=== PATIENT | male | born 1950 | race Caucasian/White ===

== ENCOUNTER → 2018-12-28 06:53 | Outpatient (CLI) | payer MEDICARE, SELFPAY ==
--- NOTE | 2018-12-28 06:58 | DI.US.S_ITS ---
PROCEDURE: US ABDOMEN LIMITED INDICATIONS: LEFT INGUINAL PRESSURE TECHNIQUE: Real-time focused scanning was performed of the left inguinal region, with image documentation. COMPARISON: None. FINDINGS: No abnormal bulge with Valsalva maneuver in the left inguinal region to suggest hernia. No fluid collection or mass. IMPRESSION: Negative exam. No left inguinal hernia. Dictated by: Darío Benson M.D. on 12/28/2018 at 7:55 Approved by: Darío Benson M.D. on 12/28/2018 at 7:56
== END ==
PROVIDERS: PCP Emergency Medicine Emergency Medical Services; Visit Provider Physician Assistant
DX: K40.90 Unilateral inguinal hernia, without obstruction or gangrene, not specified as recurrent (principal)
CPT/HCPCS: 76705

== ENCOUNTER → 2022-11-18 12:39 | Outpatient (CLI) | payer MEDICARE, SELFPAY ==
--- NOTE | 2022-11-18 | DI.ECHO.S_ITS ---
[facility] +---------+ : : [address] : [place] : : : : [id number] : : : : Phone: [phone]+ Echocardiogram Report + + :Name: WILL HUTCHINSON Study Date: 11/18/2022 Height: 69 in : :[facility] ReadingLocation: Weight: 195 lb : : Gender: Male BSA: 2.0 m2 : :: 1950 Age: 72 yrs BP: 115/62 mmHg: :Reason For Study: Cardiomyopathy : :Ordering Physician: EVENS, : :SUDHA Performed By: Vonnie Tucker : :Referring: SUDHA HORNER : + + Interpretation Summary Normal sinus rhythm with heart rate 52-60 bpm. Normal LV size and wall thickness. Normal wall motion and LV systolic function. Ejection fraction is 60-65%. Normal chamber sizes. There is a pacing lead crossing the tricuspid valve with trace associated tricuspid regurgitation. Aortic sclerosis without stenosis. Otherwise no significant valvular abnormalities. Mildly dilated aortic root measuring 4.4 cm in diameter. Mildly dilated ascending aorta measuring 4 cm in diameter Compared to prior study obtained November 03, 2021, LV is more dynamic. Aortic root is smaller down from 4.8 cm to 4.4 cm. LV end- diastolic dimension is down from 6.5 cm to 5.6 cm on current study. Procedure: A two-dimensional transthoracic echocardiogram with color flow and Doppler was performed. The study quality was technically adequate. Comparison is made with the echocardiogram of 12/21/2013. The patient has a paced rhythm. Left Ventricle: The left ventricle is normal in size. The ejection fraction is estimated to be 60-65%. Diastolic function could not be accurately assessed due to paced rhythm. Right Ventricle: The right ventricle is mildly dilated. There is a pacemaker lead in the right ventricle. The right ventricular systolic function is normal. Atria: The left atrial size is normal. Right atrial size is normal. There is no Doppler evidence for an interatrial shunt. Mitral Valve: The mitral valve leaflets appear mildly thickened, but open well. There is mild mitral valve prolapse. There is no mitral valve stenosis. There is mild mitral regurgitation. Aortic Valve: The aortic valve is trileaflet. The aortic valve opens well. There is no aortic valve stenosis. There is mild aortic regurgitation. Tricuspid Valve: The tricuspid valve is not well visualized. There is no tricuspid stenosis. There is trace tricuspid regurgitation. Pulmonic Valve: The pulmonic valve is not well visualized. There is no pulmonic valvular stenosis. There is trace pulmonic regurgitation. Great Vessels: The aortic root is mildly dilated. The ascending aorta is mildly enlarged. The pulmonary artery is normal size. The inferior vena cava was not well visualized. Pericardium/ Pleura There is no pericardial effusion. There is a small left- sided pleural effusion. MMode/2D Measurements & Calculations LVIDd: 5.6 cm LVOT diam: 2.3 cm LVIDs: 3.4 cm Ao root diam: 4.4 cm FS: 39.3 % asc Aorta Diam: 4.0 cm IVSd: 1.1 cm LVPWd: 1.0 cm LV lester. diameter/BSA (cm/m^2): 2.7 LV sys. diameter/BSA (cm/m^2): 1.7 LA A2 area: 21.7 cm2 RA long axis: 5.7 cm LA A4 area: 19.1 cm2 RA area: 17.2 cm2 LA length (vol): 5.6 cm RA vol: 44.4 ml LA vol: 63.0 ml RA : 21.7 ml/m2 LA vol index: 30.9 ml/m2 RVD1 (basal): 4.2 cm LVLs ap4: 6.2 cm LVLd ap2: 7.1 cm TAPSE_phl: 2.3 cm LVLs ap2: 6.8 cm Doppler Measurements & Calculations Ao V2 max: 96.5 cm/sec LVOT Max Kvng: 96.8 cm/sec Ao V2 mean: 71.3 cm/sec LV V1 max P.7 mmHg Ao max P.0 mmHg LV V1 VTI: 21.2 cm Ao mean P.0 mmHg NAHUM(I,D): 4.1 cm2 Ao V2 VTI: 21.3 cm NAHUM(V,D): 4.2 cm2 sev ratio: 1.00 NAHUM indexed to BSA (cm^2/m^2): 2.0 MV E max kvng: 35.8 cm/sec TR max kvng: 194.5 cm/sec MV A max kvng: 54.7 cm/sec TR max P.1 mmHg MV E/A: 0.65 PA V2 max: 86.4 cm/sec Med Peak E' Kvng: 4.6 cm/sec PA V2 mean: 56.0 cm/sec E/E' med: 7.8 PA mean P.0 mmHg Lat Peak E' Vkng: 10.3 cm/sec PA pr(Accel): 45.7 mmHg E/E' lat: 3.5 E/e' average: 5.6 MV dec time: 0.49 sec SV(LVOT): 88.1 ml AV VR_phl: 1.0 NAHUM(VTI)/BSA_phl: 2.0 Electronically signed by: Sudha Horner M.D. on Reading Physician:11/21/2022 03:53 PM
== END ==
PROVIDERS: PCP Emergency Medicine Emergency Medical Services; Referring Provider Internal Medicine; Visit Provider Internal Medicine
DX: I42.8 Other cardiomyopathies (principal); I08.0 Rheumatic disorders of both mitral and aortic valves; I77.810 Thoracic aortic ectasia; I77.89 Other specified disorders of arteries and arterioles; J90 Pleural effusion, not elsewhere classified
CPT/HCPCS: 93306

== ENCOUNTER 2023-11-21 09:22 | Emergency (ER) | payer MEDICARE, SELFPAY ==
[2023-11-21 09:26] VITALS: BP 160/70; PULSE 70; RESP 14; TEMP 36.1; O2SAT 99; BMI 28.0
--- NOTE | 2023-11-21 11:39 | PC.NURSE ---
Pt ambulatory. Can sit/stand w/o assistance.
[2023-11-21 11:41] VITALS: RESP 17
--- NOTE | 2023-11-21 11:41 | ED.BACK ---
HPI - Back Pain/Injury <Dwaine FreemanABHINAV dinh - Last Filed: 11/21/23 11:51> General Chief Complaint: Back Pain/Injury Stated Complaint: sharp pain on back, weakness r arm Time Seen by Provider: 11/21/23 11:23 Source: patient History of Present Illness HPI Narrative: 73-year-old male, never smoker, presents emergency department with persistent right upper back pain. Patient reports that symptoms started 5 days ago around mid morning but denies any extraneous activity or trauma to that area. Patient has not experienced this in the past. Patient reports that he is having some sensation changes in his right arm with certain movements of his shoulder. Patient was seen in the walk-in clinic 2 days ago and prescribed methocarbamol at bedtime. Patient states that he did not notice an improvement and has been taking Tylenol and Advil as needed. Patient denies any headache, blurry vision or loss of sensation. Related Data Home Medications Medication Instructions Recorded Confirmed alfuzosin 10 mg tablet,extended 10 mg PO DAILY 11/19/23 11/19/23 release 24 hr aspirin 325 mg tablet 325 mg PO DAILY 11/19/23 11/19/23 atorvastatin 10 mg tablet 10 mg PO DAILY 11/19/23 11/19/23 carvedilol 12.5 mg tablet (Coreg) 12.5 mg PO BID 11/19/23 11/19/23 empagliflozin 10 mg tablet 10 mg PO DAILY 11/19/23 11/19/23 pantoprazole 40 mg tablet,delayed 40 mg PO DAILY 11/19/23 11/19/23 release sacubitril 24 mg-valsartan 26 mg 1 tab PO BID 11/19/23 11/19/23 tablet tadalafil 5 mg tablet 5 mg PO DAILY 11/19/23 11/19/23 Previous Rx's Medication Instructions Recorded methocarbamol 500 mg tablet 500 mg PO BEDTIME #10 tabs 11/19/23 methocarbamol 500 mg tablet 500 mg PO TID #20 tabs 11/21/23 Allergies Allergy/AdvReac Type Severity Reaction Status Date / Time Penicillins [PENICILLINS] Allergy Mild RASH HANDS Verified 11/21/23 09:32 AND FEET Sulfa (Sulfonamide AdvReac Severe SEIZURES Verified 11/21/23 09:32 Antibiotics) [SULFA (SULFONAMIDE ANTIBIOTICS)] promethazine [PROMETHAZINE] AdvReac Intermediate hallucinati Verified 11/21/23 09:32 ons Review of Systems <ABHINAV Alejo - Last Filed: 11/21/23 11:51> Review of Systems Narrative: Narrative: See HPI. GENERAL: Denies chills, fatigue, fever, sweats. HEENT: Denies sinus pain, ear pain, sore throat, difficulty swallowing, dizziness. RESPIRATORY: Denies dyspnea, cough, wheezing, sputum. CARDIOVASCULAR: Denies chest pain, palpitations, edema. GASTROINTESTINAL: Denies nausea, vomiting, abdominal pain, diarrhea, constipation. : Denies dysuria, frequency, incontinence, hematuria, urinary retention, flank pain. MSK: Denies weakness, joint pain, or bony pain. Endorses right upper back pain. SKIN: Denies rash, skin lesions, or pruritis. NEUROLOGIC: Denies weakness, dizziness, headache, numbness, confusion. PSYCHIATRIC: No concerning psychosocial issues. Patient History <ABHINAV Alejo - Last Filed: 11/21/23 11:51> Social History Smoking Status: Never smoker Smoking Status: Never smoker alcohol intake frequency: 0-2 drinks per day Substance Use Type: does not use Exam <ABHINAV Alejo - Last Filed: 11/21/23 11:51> Narrative Exam Narrative: Exam Narrative: GENERAL: This is a well-nourished, well-developed patient, in no acute distress HEAD: Atraumatic. Normocephalic. Negative Spurling's test. ENT: Nose without bleeding, purulent drainage. Airway patent. RESPIRATORY: Respiratory rate and effort are normal. MSK: Moves all extremities. Normal range of motion, no clubbing or edema. Neurovascularly intact. DTR 2/4 bilaterally with equal hand hydroblaster strength (right side slightly less). NEURO: A&O x 3. SKIN: Warm, dry, no rashes or lesions noted. BACK shellfish processing machine tender but free of any obvious external abnormalities. There is no asymmetry, swelling, bruising or wound. There is no paraspinal tenderness or CVA tenderness. SI joints nontender. No pain over spinous processes. No symptoms of cauda equina such as saddle anesthesia. Sensation is grossly intact. ROM is full and without pain. Resistive strengths are within normal limits Initial Vital Signs Initial Vital Signs: Vital Signs Temperature 97.0 F L 11/21/23 09:26 Pulse Rate 70 11/21/23 09:26 Respiratory Rate 14 11/21/23 09:26 Blood Pressure 160/70 H 11/21/23 09:26 Pulse Oximetry 99 11/21/23 09:26 Oxygen Delivery Method Room Air 11/21/23 09:26 Reviewed <Ibrahima Cabezas MD - Last Filed: 11/21/23 20:44> Initial Vital Signs Initial Vital Signs: Vital Signs Temperature 97.0 F L 11/21/23 09:26 Pulse Rate 70 11/21/23 09:26 Respiratory Rate 14 11/21/23 09:26 Blood Pressure 160/70 H 11/21/23 09:26 Pulse Oximetry 99 11/21/23 09:26 Oxygen Delivery Method Room Air 11/21/23 09:26 Course <ABHINAV Alejo - Last Filed: 11/21/23 11:51> Vital Signs Vital signs: Vital Signs - 8 hr 11/21/23 09:26 11/21/23 11:41 Temperature 97.0 F L Pulse Rate 70 Respiratory Rate 14 17 Blood Pressure 160/70 H Pulse Oximetry 99 Oxygen Delivery Method Room Air Room Air <Ibrahima Cabezas MD - Last Filed: 11/21/23 20:44> Vital Signs Vital signs: Vital Signs - 8 hr 11/21/23 09:26 11/21/23 11:41 Temperature 97.0 F L Pulse Rate 70 Respiratory Rate 14 17 Blood Pressure 160/70 H Pulse Oximetry 99 Oxygen Delivery Method Room Air Room Air MDM - Back Pain/Injury <ABHINAV Alejo - Last Filed: 11/21/23 11:51> Differential Diagnosis Differential diagnosis: Likely other (Thoracic back strain) MDM Narrative Medical decision making narrative: 73-year-old male with right upper back discomfort. Assessment was encouraging and clinical findings were suggestive a supraspinatus strain. Discussed supportive care measures that include gentle range of motion stretching exercises, hot or cold compresses to the affected site and self massage with a massage gun. Patient previously prescribed methocarbamol at bedtime only. Recommended taking methocarbamol 3 times a day for 3 days and then as needed. Discussed worsening symptoms that would necessitate a return visit. Patient verbalized understanding was agreeable course of action. Discharge Plan Departure Patient Disposition: Home Clinical Impression: Strain of thoracic back region Instructions: DI for Back Strain or Sprain Activity Restrictions/Additional Instructions: *You have been diagnosed with a upper back strain. I believe the medication you were prescribed was appropriate, but believe we need to have you take it more frequently. Please take the methocarbamol 3 times a day for 3 days and then as needed for muscle pain/spasm. As we discussed, gentle range of motion stretching exercises and self massager may help with this discomfort. For any worsening symptoms, feel free to return to the emergency department. *What to do: *Please continue to take your regular medications as directed. [x ] New medication prescriptions sent to your pharmacy: [[facility]] [ ] New medication written as a paper prescription [ ] No new medications given *Please follow up with your primary care provider in 2-3 days, call for an appointment. Let them know you were seen in the Emergency Department and that we ask that you be seen in follow up. We will electronically transmit a record of today's note if your PCP is in our system *If you do not have a primary care provider please contact the [facility] Resource line at [phone]. They will ask some questions about your medical history and help get you set up with a doctor in the community. ? Return to ER if you should have any new, worsening or concerning symptoms, such as worsening pain, severe headache, confusion, chest pain, difficulty breathing, fever greater than 101 F, shaking chills, persistent vomiting to the point that you cannot drink fluids, or other new or worsening symptoms. Prescriptions: New methocarbamol 500 mg tablet 500 mg PO TID Qty: 20 0RF Rx Instructions: Take 1 pill by mouth 3 times a day for 3 days, and then as needed for muscle pain or spasm. No Action pantoprazole 40 mg tablet,delayed release (DR/EC) 40 mg PO DAILY tadalafil 5 mg tablet 5 mg PO DAILY sacubitril-valsartan 24-26 mg tablet 1 tab PO BID empagliflozin 10 mg tablet 10 mg PO DAILY alfuzosin 10 mg tablet extended release 24 hr 10 mg PO DAILY Rx Instructions: administer after the same meal each day carvedilol [Coreg] 12.5 mg tablet 12.5 mg PO BID Rx Instructions: must administer with a meal/food atorvastatin 10 mg tablet 10 mg PO DAILY aspirin 325 mg tablet 325 mg PO DAILY methocarbamol 500 mg tablet 500 mg PO BEDTIME Qty: 10 0RF Referrals: Leif Castillo MD [Primary Care Provider] - Stand Alone Forms: Patient Portal/API ED Sign-out <Ibrahima Cabezas MD - Last Filed: 11/21/23 20:44> Cosign ED Attending Minervaature Attestation: I was immediately available in the department for consultation. This documentation has been reviewed. Supervised by Ibrahima Cabezas MD
== END 2023-11-21 11:46 | disposition home or self-care (01) ==
PROVIDERS: Emergency Provider Registered Nurse; PCP Emergency Medicine Emergency Medical Services
DX: S29.012A Strain of muscle and tendon of back wall of thorax, initial encounter (principal); X58.XXXA Exposure to other specified factors, initial encounter
CPT/HCPCS: 99281; 99283

== ENCOUNTER → 2024-08-26 09:57 | Outpatient (CLI) | payer MEDICARE, SELFPAY | LOC: LAB 10:02 | PROVIDERS: PCP Nurse Practitioner Family; Referring Provider Physician Assistant; Visit Provider Physician Assistant | DX: K90.41 Non-celiac gluten sensitivity (principal); R19.5 Other fecal abnormalities; Z83.79 Family history of other diseases of the digestive system | CPT/HCPCS: 86231; 86258; 86364 ==

== ENCOUNTER → 2024-10-15 09:36 | Outpatient (CLI) | payer MEDICARE, SELFPAY ==
[2024-10-15 10:42] LABS: Blood Urea Nitrogen 22 mg/dL (9-20); Calcium 9.4 mg/dL (8.4-10.2); Carbon Dioxide 26 mmol/L (22-32); Chloride 105 mmol/L (98-107); Estimated Glomerular Filt Rate > 60 mL/min (>60); Glucose 100 mg/dL (70-99); HEMOLYSIS < 15 (0-50); Potassium 4.0 mmol/L (3.4-5.1); Sodium 138 mmol/L (137-145)
== END ==
PROVIDERS: PCP Nurse Practitioner Family; Referring Provider Nurse Practitioner Family; Visit Provider Nurse Practitioner Family
DX: I48.0 Paroxysmal atrial fibrillation (principal); R60.9 Edema, unspecified
CPT/HCPCS: 36415; 80048

== ENCOUNTER 2025-02-07 18:55 | Emergency (ER) | payer MEDICARE, SELFPAY ==
[2025-02-07 19:40] VITALS: BP 123/68; PULSE 78; RESP 18; TEMP 36.2; O2SAT 95; BMI 28.0
--- NOTE | 2025-02-07 19:44 | ED.EXTPRO ---
HPI - Extremity Problem General Chief complaint: Wound/Laceration Stated complaint: post op rt leg bleeding Time Seen by Provider: 02/07/25 19:42 History of Present Illness HPI Narrative: 74-year-old male patient with a history of atrial fibrillation, dyslipidemia and hypertension who underwent a right femoral catheterization for an ablation of atrial fibrillation. He was discharged home at around 4:00 p.m.. This evening he noticed blood gushing in his underwear and came to the ER. Currently bleeding is controlled. Related Data Home Medications ?Medication ?Instructions ?Recorded ?Confirmed alfuzosin 10 mg tablet,extended 10 mg PO DAILY 11/19/23 11/19/23 release 24 hr aspirin 325 mg tablet 325 mg PO DAILY 11/19/23 11/19/23 atorvastatin 10 mg tablet 10 mg PO DAILY 11/19/23 11/19/23 carvedilol 12.5 mg tablet (Coreg) 12.5 mg PO BID 11/19/23 11/19/23 empagliflozin 10 mg tablet 10 mg PO DAILY 11/19/23 11/19/23 pantoprazole 40 mg tablet,delayed 40 mg PO DAILY 11/19/23 11/19/23 release sacubitril 24 mg-valsartan 26 mg 1 tab PO BID 11/19/23 11/19/23 tablet tadalafil 5 mg tablet 5 mg PO DAILY 11/19/23 11/19/23 Previous Rx's ?Medication ?Instructions ?Recorded methocarbamol 500 mg tablet 500 mg PO BEDTIME #10 tabs 11/19/23 methocarbamol 500 mg tablet 500 mg PO TID #20 tabs 11/21/23 Allergies Allergy/AdvReac Type Severity Reaction Status Date / Time Penicillins (PENICILLINS) Allergy Mild RASH HANDS Verified 02/07/25 19:50 AND FEET Sulfa (Sulfonamide AdvReac Severe SEIZURES Verified 02/07/25 19:50 Antibiotics) (SULFA (SULFONAMIDE ANTIBIOTICS)) promethazine (PROMETHAZINE) AdvReac Intermediate hallucinati Verified 02/07/25 19:50 ons Review of Systems Review of Systems ROS Unobtainable: All systems reviewed & are unremarkable except as noted in HPI and below Musculoskeletal Musculoskeletal: Reports as per HPI Integumentary/Breasts Skin/Breast: Reports as per HPI Patient History Social History Smoking Status: Never smoker alcohol intake frequency: 0-2 drinks per day Exam Narrative Exam Narrative: General: Alert and conversant. No distress. Appears well nourished and well hydrated Lungs: Nonlabored respiration. Musculoskeletal: Exam of the right femoral puncture site reveals some old blood but no active bleeding and no hematoma. Bleeding is currently controlled. Neuro: Alert and oriented. Cranial nerves, motor, sensory and cerebellar all grossly intact. No focal deficit Skin: Warm and normal color. No rashes Psychological: Normal affect and interaction. No evidence of delusion or psychosis. Normal mood. Initial Vital Signs Initial Vital Signs: Vital Signs Temperature 97.2 F L 02/07/25 19:40 Pulse Rate 78 02/07/25 19:40 Respiratory Rate 18 02/07/25 19:40 Blood Pressure 123/68 02/07/25 19:40 Pulse Oximetry 95 02/07/25 19:40 Oxygen Delivery Method Room Air 02/07/25 19:40 Course Vital Signs Vital signs: Vital Signs - 8 hr 02/07/25 19:40 02/07/25 20:52 Temperature 97.2 F L 98.0 F Pulse Rate 78 69 Respiratory Rate 18 18 Blood Pressure 123/68 102/63 Pulse Oximetry 95 95 Oxygen Delivery Method Room Air Room Air MDM - Extremity (Nontraumatic) MDM Narrative Medical decision making narrative: Patient had transient bleeding from his right femoral artery puncture site for his ablation. However by the time he got here the bleeding had stopped and he had no hematoma. We observed him for 30 minutes and had no further bleeding. 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 Return to the ER if worse. Discharge Plan Departure Patient Disposition: Home Clinical Impression: Post-operative hemorrhage Instructions: Radiofrequency Ablation Activity Restrictions/Additional Instructions: Plan: Monitor wound site and continue pressure as needed. Contact your provider tomorrow to explain the bleeding. Return to the ER if worse Prescriptions: No Action pantoprazole 40 mg tablet,delayed release (DR/EC) 40 mg PO DAILY tadalafil 5 mg tablet 5 mg PO DAILY sacubitril-valsartan 24-26 mg tablet 1 tab PO BID empagliflozin 10 mg tablet 10 mg PO DAILY alfuzosin 10 mg tablet extended release 24 hr 10 mg PO DAILY Rx Instructions: administer after the same meal each day carvedilol [Coreg] 12.5 mg tablet 12.5 mg PO BID Rx Instructions: must administer with a meal/food atorvastatin 10 mg tablet 10 mg PO DAILY aspirin 325 mg tablet 325 mg PO DAILY methocarbamol 500 mg tablet 500 mg PO BEDTIME Qty: 10 0RF methocarbamol 500 mg tablet 500 mg PO TID Qty: 20 0RF Rx Instructions: Take 1 pill by mouth 3 times a day for 3 days, and then as needed for muscle pain or spasm. Referrals: Luis Alcala ARNP [Primary Care Provider, Medical] Stand Alone Forms: Patient Portal/API
--- NOTE | 2025-02-07 20:50 | PC.NURSE ---
This pt assessed by Dr. Pennington. Provider deemed safe for pt discharge. This nurse discharged pt.
[2025-02-07 20:52] VITALS: BP 102/63; PULSE 69; RESP 18; TEMP 36.7; O2SAT 95
== END 2025-02-07 20:54 | disposition home or self-care (01) ==
PROVIDERS: Emergency Provider Emergency Medicine; PCP Nurse Practitioner Family
DX: I97.618 Postprocedural hemorrhage of a circulatory system organ or structure following other circulatory system procedure (principal)
CPT/HCPCS: 99281